=== PATIENT | female | born 1970 | race Caucasian/White ===

== ENCOUNTER 2017-04-15 17:22 | Emergency (ER) | payer BC ==
[2017-04-15] MEDS ORDERED: Sodium Chloride 0.9% 1,000 ML IV ONE (18:25)
--- NOTE | 2017-04-15 19:34 | EDM.PDOC ---
ED HPI GENERAL MEDICAL PROBLEM - General Chief Complaint: Abdominal Pain Stated Complaint: POSS BOWEL OBS Time Seen by Provider: 04/15/17 18:00 Source of Information: Reports: Patient, Provider History Limitations: Reports: No Limitations - History of Present Illness INITIAL COMMENTS - FREE TEXT/NARRATIVE: Patient is a 46-year-old female with a history of ulcerative colitis and total colectomy who presented to the [facility] yesterday with concerns of left flank pain. Provider suspect the patient may have a kidney stone or muscle spasm. She was treated with Voltaren and Flexeril with relief of pain to the left flank. UA did reveal hematuria and thus CT of the abdomen was prompted for today. Patient was called back with markedly distended small bowel down to the ileoanal asked ecchymosis with obstruction not excluded. She was referred to the ED for further evaluation for small bowel obstruction. Patient states she does not have any abdominal pain. States she has abdominal pressure all the time with a sensation of excess air within her small bowel. Nothing has changed with her abdomen. She owes has a sensation of feeling bloated. She continues to have 15-20 diarrhea episodes with no blood present. This is normal for the patient. She is not nauseated and does not have a fever and does not complain of any dysuria. Total colectomy was completed in 2002. Patient has not had a CT since nor diagnosis of a small bowel obstruction since. Lower Back Pain Score (Numeric/FACES): 2 Abdomen Pain Score (Numeric/FACES): 5 - Related Data Allergies Allergy/AdvReac Type Severity Reaction Status Date / Time codeine Allergy Stomach Verified 04/15/17 17:29 Ache Past Medical History HEENT History: Reports: Impaired Vision Other HEENT History: wears eyeglasses. Gastrointestinal History: Reports: Other (See Below) Other Gastrointestinal History: colitis Genitourinary History: Reports: Renal Calculus [employer]ACHINE [employer]ATOR History: Reports: Hematologic History: Reports: Anemia, Blood Transfusion(s), Iron Deficiency Dermatologic History: Reports: Psoriasis - Infectious Disease History Infectious Disease History: Reports: Chicken Pox - Past Surgical History GI Surgical History: Reports: Cholecystectomy, Other (See Below) Other GI Surgeries/Procedures: surgery to have most of colon removed due to collitis in 2002. Female Surgical History: Reports: Section Social & Family History - Tobacco Use Smoking Status *Q: Current Every Day Smoker Years of Tobacco use: 20 Packs/Tins Daily: 0.4 - Caffeine Use Caffeine Use: Reports: Coffee - Recreational Drug Use Recreational Drug Use: No ED ROS GENERAL - Review of Systems Review Of Systems: ROS reveals no pertinent complaints other than HPI. ED EXAM, GI/ABD - Physical Exam Exam: See Below Exam Limited By: No Limitations General Appearance: Alert, WD/WN, No Apparent Distress Ears: Hearing Grossly Normal Nose: Normal Inspection Throat/Mouth: Normal Voice, No Airway Compromise, Other (Oral mucosa is moist but the patient does feel she is dehydrated. ) Neck: Normal Inspection, Supple Respiratory/Chest: No Respiratory Distress, Lungs Clear, Normal Breath Sounds, No Accessory Muscle Use Cardiovascular: Normal Peripheral Pulses, Regular Rate, Rhythm GI/Abdominal Exam: Abnormal Bowel Sounds (Hyperactive), Other (Abdomen distended with multiple old surgical incisions to her abdomen. No pain with palpation. Per patient abdominal findings are normal.) Neurological: Alert, Oriented, CN II-XII Intact, Normal Cognition Psychiatric: Normal Affect, Normal Mood Skin Exam: Warm, Dry, Intact, Normal Color Course - Vital Signs Last Recorded V/S: Last Vital Signs Temp 97.2 F 04/15/17 17:25 Pulse 98 04/15/17 17:25 Resp 16 04/15/17 17:25 BP 111/70 04/15/17 17:25 Pulse Ox 100 04/15/17 17:25 - Orders/Labs/Meds Labs: Laboratory Tests 04/15/17 04/15/17 Range/Units 18:55 18:55 WBC 8.47 (3.98-10.04) K/mm3 RBC 4.58 (3.98-5.22) M/mm3 Hgb 9.7 L (11.2-15.7) gm/L Hct 32.4 L (34.1-44.9) % MCV 70.7 L (79.4-94.8) fl MCH 21.2 L (25.6-32.2) pg MCHC 29.9 L (32.2-35.5) g/dl RDW Std Deviation 40.7 (36.4-46.3) fL Plt Count 391 H (182-369) K/mm3 MPV 9.7 (9.4-12.3) fl Neut % (Auto) 69.1 (34.0-71.1) % Lymph % (Auto) 20.2 (19.3-51.7) % Boundary % (Auto) 8.0 (4.7-12.5) % Eos % (Auto) 2.1 (0.7-5.8) Baso % (Auto) 0.5 (0.1-1.2) % Neut # (Auto) 5.85 (1.56-6.13) K/mm3 Lymph # (Auto) 1.71 (1.18-3.74) K/mm3 Boundary # (Auto) 0.68 H (0.24-0.36) K/mm3 Eos # (Auto) 0.18 (0.04-0.36) K/mm3 Baso # (Auto) 0.04 (0.01-0.08) K/mm3 Manual Slide Review Abnormal smear Sodium 140 (136-145) mEq/L Potassium 3.7 (3.5-5.1) mEq/L Chloride 101 (98-107) mEq/L Carbon Dioxide 29 (21-32) mEq/L Anion Gap 13.7 (5-15) BUN 19 H (7-18) mg/dL Creatinine 0.9 (0.55-1.02) mg/dL Est Cr Clr Drug Dosing 60.46 mL/min Estimated GFR (MDRD) > 60 (>60) mL/min BUN/Creatinine Ratio 21.1 H (14-18) Glucose 96 (74-106) mg/dL Calcium 9.6 (8.5-10.1) mg/dL Total Bilirubin 0.3 (0.2-1.0) mg/dL AST 15 (15-37) U/L ALT 18 (14-59) U/L Alkaline Phosphatase 115 (46-116) U/L C-Reactive Protein 4.1 H* (<1.0) mg/dL Total Protein 7.9 (6.4-8.2) g/dl Albumin 3.3 L (3.4-5.0) g/dl Globulin 4.6 gm/dL Albumin/Globulin Ratio 0.7 L (1-2) Meds: Medications Discontinued Medications Generic Name Dose Route Start Last Admin Trade Name Freq PRN Reason Stop Dose Admin Sodium Chloride 1,000 mls @ 999 mls/hr 04/15/17 18:25 04/15/17 18:30 Normal Saline IV 04/15/17 19:25 999 mls/hr ONETIME ONE Administration - Re-Assessments/Exams Free Text/Narrative Re-Assessment/Exam: Do not have the clinic notes her CT report from [facility]. IV is being established. Patient does feel dry. Will order basic labs and also IV fluids. CBC White blood cell count 8.47, hemoglobin is 9.7, platelet count 391, sodium 140, potassium 3.7, AG 13.7, BUN 19, creatinine 0.9, LFTs normal, CRP 4.1. UA is pending. She's not provide a UA. CT report of the abdomen and pelvis with out and with contrast obtained April 08, 2017 at [place] impression: Markedly distended small bowel down to the ileoanal anastomosis with obstruction not excluded. 04/15/17 19:38 per nursing staff, patient is wishing to be discharged home. She has no complaints at this time. Departure - Departure Time of Disposition: 19:39 Disposition: Home, Self-Care 01 Condition: Good Clinical Impression: History of total colectomy, Partial small bowel obstruction - Discharge Information Instructions: Small Bowel Obstruction, [id number] Referrals: To Awan MD [Primary Care Provider] - Forms: ED Department Discharge Additional Instructions: As discussed CT the abdomen and pelvis obtained today at [facility] revealed findings concerning for small bowel obstruction. Suspect this is a chronic finding for you since he do not have any nausea/vomiting, worsening abdominal pain, and her continue to have normal bowel movements for you since total colectomy. Suggest monitoring for any changes. He have worsening pain, nausea/vomiting, increased bloating, or any other unusual symptoms please return back to the ED. Continue to follow up with PCP as needed for left flank discomfort. Suspect that was muscle related as well.
== END 2017-04-15 20:17 | disposition home or self-care (01) ==
LOC: JD.ED 17:22
DX: K56.600 Partial intestinal obstruction, unspecified as to cause (principal); Z90.49 Acquired absence of other specified parts of digestive tract; L40.9 Psoriasis, unspecified; F17.210 Nicotine dependence, cigarettes, uncomplicated; Z87.442 Personal history of urinary calculi; Z86.2 Personal history of diseases of the blood and blood-forming organs and certain disorders involving the immune mechanism; Z88.5 Allergy status to narcotic agent
CPT/HCPCS: 36415; 80053; 85025; 86140; 96360; 99284; J7040